=== PATIENT | female | born 1960 | race Caucasian/White ===

== ENCOUNTER 2021-06-11 08:53 | Outpatient (CLI) | payer OTHER | END 2021-06-11 08:54 | disposition home or self-care (01) | LOC: DTY/OP 08:53 | PROVIDERS: ATTEND Specialist | DX: Z01.818 Encounter for other preprocedural examination (principal); E66.01 Morbid (severe) obesity due to excess calories | CPT/HCPCS: 97802 ==

== ENCOUNTER 2021-07-12 11:48 | Outpatient (CLI) | payer OTHER ==
[2021-07-13 07:41] LABS: SARS-CoV-2 PCR by NAA Not Detected (NotDetected)
== END 2021-07-12 11:49 | disposition home or self-care (01) ==
LOC: LABBT 11:48
PROVIDERS: ATTEND Specialist
DX: Z01.818 Encounter for other preprocedural examination (principal); Z20.822 Contact with and (suspected) exposure to COVID-19
CPT/HCPCS: 93005; 93010; U0003; U0005

== ENCOUNTER 2021-07-12 12:00 | Inpatient (IN) | payer OTHER ==
[2021-09-30] MEDS ORDERED: Ketorolac Tromethamine 30 MG/ML VIAL ONE (06:03)
[2021-09-30] MEDS ORDERED: Acetaminophen 500 MG TAB ONE (06:03)
[2021-09-30] MEDS ORDERED: Bupivacaine 0.25% HCL 30 ML VIAL ONE (06:36)
[2021-09-30] MEDS ORDERED: Lidocaine 1% w/Epinephrine 1:100K 20 ML VIAL ONE (06:36)
[2021-09-30] MEDS ORDERED: Midazolam HCl 2 mg/2 ml Vial ONE (07:02)
[2021-09-30] MEDS ORDERED: Fentanyl 100 MCG/2 ML VIAL ONE ×2 (07:02→11:23)
[2021-09-30] MEDS ORDERED: Metoclopramide HCl 10 MG/2 ML VIAL ONE (08:03)
[2021-09-30] MEDS ORDERED: PHENYLEPHRINE-NS 100 MCG/ML 10 ML SYRINGE ONE (08:03)
[2021-09-30] MEDS ORDERED: Ondansetron PF 4 MG/2 ML Vial ONE (08:03)
[2021-09-30] MEDS ORDERED: PROPOFOL 200 MG/20 ML VIAL ONE (08:03)
[2021-09-30] MEDS ORDERED: ePHEDrine 50 MG/ML VIAL ONE (08:03)
[2021-09-30] MEDS ORDERED: Glycopyrrolate 0.2 MG/ML 5 ML SYRINGE ONE (08:03)
[2021-09-30] MEDS ORDERED: Rocuronium Bromide 10 MG/ML (10ML VIAL) ONE (08:03)
[2021-09-30] MEDS ORDERED: Dexamethasone 20 MG/5 ML VIAL ONE (08:03)
[2021-09-30] MEDS ORDERED: Lidocaine 1% PF 5 ML VIAL ONE (08:03)
[2021-09-30] MEDS ORDERED: Promethazine HCl 25 MG/ML VIAL IVPB PRN (10:57)
[2021-09-30] MEDS ORDERED: Promethazine HCl 25 MG/ML VIAL IM PRN ×2 (10:57→11:53)
[2021-09-30] MEDS ORDERED: Ondansetron HCl/PF 4 MG/2 ML Vial IVP PRN (10:57)
[2021-09-30] MEDS ORDERED: Promethazine HCl 25 MG/ML VIAL ONE (11:23)
[2021-09-30] MEDS ORDERED: D5 1/2 NS w/20 mEq KCL 1,000 ML ONE (11:35)
[2021-09-30] MEDS ORDERED: Morphine 4 MG/ML VIAL SLOW IVP PRN ×2 (11:53→12:18)
[2021-09-30] MEDS ORDERED: Dextrose 5% in Water 1,000 ML IV PRN (11:53)
[2021-09-30] MEDS ORDERED: diphenhydrAMINE 50 MG/ML VIAL IVP PRN (11:53)
[2021-09-30] MEDS ORDERED: Dextrose 50% Abboject 50 ML SYRINGE SLOW IVP PRN (11:53)
[2021-09-30] MEDS ORDERED: hydrALAZINE 20 MG/ML VIAL SLOW IVP PRN (11:53)
[2021-09-30] MEDS ORDERED: Ondansetron PF 4 MG/2 ML Vial IVP PRN (11:53)
[2021-09-30] MEDS: Ketorolac Tromethamine 30 MG/ML VIAL IVP SCH ×2 (13:14→18:07)
[2021-09-30] MEDS: D5 1/2 NS w/20 mEq KCL 1,000 ML IV SCH ×2 (15:45→21:13)
[2021-09-30] MEDS: Hydrocodone-Acetamin 15 ML UDCUP PO PRN (15:49)
[2021-09-30 20:00] VITALS: BMI 35.3
[2021-09-30] MEDS ORDERED: Enoxaparin Sodium 40 MG/0.4 ML SYRINGE SC SCH (21:00)
[2021-10-01] MEDS: Ketorolac Tromethamine 30 MG/ML VIAL IVP SCH ×3 (00:38→16:33)
[2021-10-01] MEDS: D5 1/2 NS w/20 mEq KCL 1,000 ML IV SCH ×2 (05:11→16:34)
[2021-10-01 05:57] LABS: #Basophils 0.1 thou/uL (0.0-0.2); #Lymphocytes 3.1 thou/uL (1.20-3.40); #Monocytes 0.8 thou/uL (0.11-0.59); #Neutrophils 10.1 thou/uL (1.40-6.50); %Basophils 0.4 % (0.0-1.0); %Eosinophils 0.3 % (0.0-10.0); %Lymphocytes 21.8 % (21.0-51.0); %Monocytes 5.4 % (0.0-10.0); %Neutrophils 72.1 % (42.0-75.0); Hemoglobin 11.3 g/dL (12.0-16.0); Mean Corpuscular HGB CONC 31.8 g/dL (32.0-36.0); Mean Corpuscular Hemoglobin 31.7 pg (27.0-31.0); Mean Corpuscular Volume 99.5 fL (78.0-98.0); Mean Platelet Volume 7.1 fL (7.4-10.4); Platelet Count 302 thou/uL (130-400); RBC Distribution Width 12.7 % (11.5-14.5); Red Blood Cell (RBC) Count 3.58 mill/uL (4.20-5.40)
[2021-10-01 06:15] LABS: Anion Gap 9 mmol/L (10-20); BUN (Urea Nitrogen) 10 mg/dL (9.8-20.1); Calc. Creatinine Clearance 112 mL/min (70-130); Calcium 8.4 mg/dL (7.8-10.44); Carbon Dioxide 25 mmol/L (23-31); Chloride 107 mmol/L (98-107); Glucose 93 mg/dL (80-115); Potassium 4.1 mmol/L (3.5-5.1); Sodium 137 mmol/L (136-145)
[2021-10-01] MEDS ORDERED: Pantoprazole 40 MG VIAL IVP SCH (09:00)
[2021-10-01] MEDS: Hydrocodone-Acetamin 15 ML UDCUP PO PRN (11:18)
[2021-10-01 11:23] VITALS: BP 128/81; TEMP 98.6
== END 2021-10-01 12:30 | disposition home or self-care (01) | DRG 621 ==
LOC: SURG A 09-30 05:33 → SJJU 09-30 12:19
PROVIDERS: ADMIT Specialist; ATTEND Specialist
PROC: 0D164ZA Bypass Stomach to Jejunum, Percutaneous Endoscopic Approach (ICD-10-PCS; principal; 2021-09-30)
PROC: 0BQT4ZZ Repair Diaphragm, Percutaneous Endoscopic Approach (ICD-10-PCS; 2021-09-30)
DX: E66.01 Morbid (severe) obesity due to excess calories (principal); K46.9 Unspecified abdominal hernia without obstruction or gangrene; K21.00 Gastro-esophageal reflux disease with esophagitis, without bleeding; I10 Essential (primary) hypertension; Z98.51 Tubal ligation status; Z90.710 Acquired absence of both cervix and uterus; Z85.828 Personal history of other malignant neoplasm of skin; Z91.041 Radiographic dye allergy status; Z68.35 Body mass index [BMI] 35.0-35.9, adult; Z91.040 Latex allergy status
CPT/HCPCS: 36415; 80048; 85025; C1889; C9113; J0690; J1100; J1650; J1885; J2250; J2270; J2405; J2550; J2704; J2765; J3010; J3480; J3490; S0020

== ENCOUNTER 2021-09-27 12:03 | Outpatient (CLI) | payer OTHER ==
[2021-09-27 20:28] LABS: SARS-CoV-2 PCR by NAA Not Detected (NotDetected)
== END 2021-09-27 12:04 | disposition home or self-care (01) ==
LOC: LABBT 12:03
PROVIDERS: ATTEND Specialist
DX: Z01.812 Encounter for preprocedural laboratory examination (principal); K44.9 Diaphragmatic hernia without obstruction or gangrene; E66.01 Morbid (severe) obesity due to excess calories; Z20.822 Contact with and (suspected) exposure to COVID-19
CPT/HCPCS: U0003; U0005

== ENCOUNTER 2021-11-25 12:22 | Day surgery (SDC) | payer OTHER ==
[~2021-11-25 12:22] MED LIST: Ondansetron PF 4 MG/2 ML Vial IVP PRN; Sodium Chloride 0.9% 1,000 ML IV SCH; Thiamine HCl 200 MG/2 ML VIAL SLOW IVP SCH
[2021-11-25] MEDS ORDERED: Ondansetron PF 4 MG/2 ML Vial IVP PRN (12:30)
[2021-11-25] MEDS ORDERED: Multivitamins, Adult 10 ML, Thiamine HCl 100 MG in Sodium Chloride 0.9% 1,000 ML IV SCH (12:30)
[2021-11-25 12:37] VITALS: BP 129/74; TEMP 98.2
[2021-11-25] MEDS ORDERED: Multivitamins, Adult 10 ML in Sodium Chloride 0.9% 500 ML IV SCH (14:00)
== END 2021-11-25 15:40 | disposition home or self-care (01) ==
LOC: ONC/OP 12:22
PROVIDERS: ATTEND Specialist
DX: E86.0 Dehydration (principal); Z91.040 Latex allergy status
CPT/HCPCS: 96361; 96365; 96366; J3411; J3490; J7030; J7050

== ENCOUNTER 2021-12-16 09:28 | Day surgery (SDC) | payer OTHER ==
[~2021-12-16 09:28] MED LIST changes: +Multivitamins, Adult 10 ML in Sodium Chloride 0.9% 500 ML IV SCH; +Multivitamins, Adult 10 ML, Thiamine HCl 100 MG in Sodium Chloride 0.9% 1,000 ML IV SCH
[2021-12-16] MEDS ORDERED: Sodium Chloride 0.9% 10 ML ONE ×3 (09:41→09:42)
[2021-12-16 10:02] VITALS: BP 112/60; TEMP 98.3
== END 2021-12-16 11:35 | disposition home or self-care (01) ==
LOC: ONC/OP 09:28
PROVIDERS: ATTEND Specialist
DX: E86.0 Dehydration (principal); Z91.040 Latex allergy status
CPT/HCPCS: 96365; J3411; J7050